=== PATIENT | male | born 1960 | race African-American/Black ===

== ENCOUNTER 2016-07-21 12:44 | Emergency (ER) | payer BC, OTHER ==
[~2016-07-21] VITALS: Ht 182.9 cm; Wt 104.3 kg
--- NOTE | 2016-07-21 13:00 | Emergency Room Report ---
History of Present Illness General Chief Complaint: Upper Respiratory Illness Source: Patient Present Illness HPI The patient is a 56 M who denies any medical history including COPD or asthma presenting for a productive cough for the past week. The patient states that he produces a white sputum. The patient states that he has had difficulty sleeping due to the cough. Patient has tried Robitussin which has not helped. The patient denies any other symptoms including fever, chills, night sweats, hemoptysis, nausea, vomiting, headache, chest pain, shortness of breath. The patient denies any sick contacts or recent travel. Allergies: Coded Allergies: No Known Allergies (Unverified , 07/21/16) Patient History Past Medical History: see triage record Pertinent Family History: none Reviewed Nursing Documentation: PMH: Agreed, PSxH: Agreed Nursing Documentation-PMH Past Medical History: No Stated History Review of Systems All Other Systems: negative except mentioned in HPI Physical Exam Vital Signs Date Time Temp Pulse Resp B/P Pulse Ox O2 Delivery O2 Flow Rate FiO2 07/21/16 12:54 98.2 72 16 142/90 96 Room Air Sp02 EP Interpretation: reviewed, normal General Appearance: no apparent distress, alert, GCS 15, non-toxic Head: normocephalic, atraumatic Eyes: bilateral eye PERRL, bilateral eye normal inspection ENT: hearing grossly normal, no angioedema, normal voice, uvula midline, moist mucus membranes, other - Oropharynx is erythematous Neck: full range of motion, supple/symm/no masses Respiratory: chest non-tender, lungs clear, normal breath sounds, no respiratory distress, no accessory muscle use, no wheezing, speaking full sentences Cardiovascular #1: regular rate, rhythm, no edema Gastrointestinal: normal bowel sounds, non tender, soft, non-distended, no guarding, no rebound Musculoskeletal: back normal, gait/station normal, normal range of motion, non- tender Neurologic: alert, oriented x3, responsive, motor strength/tone normal, sensory intact, speech normal Psychiatric: judgement/insight normal, memory normal, mood/affect normal, no suicidal/homicidal ideation Skin: normal color, no rash, warm/dry, well hydrated Lymphatic: no adenopathy Medical Decision Making PA Attestation Dr. Argueta is my supervising physician. Patient management was discussed with my supervising physician Diagnostic Impression: Primary Impression: Pharyngitis, acute ER Course The patient is a 56 M presenting for one week of cough Differential diagnosis include but not limited to pharyngitis, sinusitis, AOM, bronchitis, PNA Physical exam: Afebrile. No apparent distress HEENT exam: There is no exudate. Uvula midline. No tonsillar edema. Moist mucous membranes.Oropharynx is erythematous There no cervical lymphadenopathy. Lungs are clear to auscultation bilaterally Skin is warm and dry. No rash The patient is advised that this is most likely viral The patient will be discharged home with a prescription for cough medication and is given ER precautions. Patient will followup with primary care Last Vital Signs Date Time Temp Pulse Resp B/P Pulse Ox O2 Delivery O2 Flow Rate FiO2 07/21/16 12:54 98.2 72 16 142/90 96 Room Air Status: improved Disposition: HOME, SELF-CARE Condition: Improved Scripts D-Methorphan Hb/Prometh Hcl* (PROMETHAZINE-DM SYRUP*) 118 Ml Syrup 5 ML ORAL Q6H Y for For Cough, #118 ML 0 Refills Prov: RUBÉN RAZO 07/21/16 RUBÉN RAZO Jul 21, 2016 13:00
[2016-07-21 13:01] VITALS: BP 142/90
[2016-07-21] MEDS ORDERED: PROMETHAZINE-D118 ML ORAL (13:07)
[2016-07-21 13:08] VITALS: BP 142/90
== END 2016-07-21 13:20 | disposition home or self-care (01) ==
LOC: EMR 13:05
DX: J02.9 Acute pharyngitis, unspecified (principal); J44.9 Chronic obstructive pulmonary disease, unspecified; J45.909 Unspecified asthma, uncomplicated
CPT/HCPCS: 99283